=== PATIENT | male | born 1970 | race Caucasian/White ===

== ENCOUNTER 2016-07-09 20:25 | Inpatient (IN) | payer BC ==
--- NOTE | ~2016-07-09 | CN ---
Consultation Report [facility] [address] [place]. [address] NAME: MARCO ACEVEDO : 66 STATUS : ADM IN PAT#: [id number] AGE: 46 ADM/REG DATE : 07/09/16 MR#: [id number] REPORT SERV DATE: 07/12/16 DICTATED BY: LUKE HALL DATE: 07/11/16 REPORT STATUS : Draft TRANSCRIBED BY: MODPetey DATE: 07/11/16 INFECTIOUS DISEASE CONSULT DATE OF CONSULTATION: REASON FOR CONSULT: "Recurrent pneumonia with cavitation." HISTORY OF PRESENT ILLNESS: This is a 46 years old white male with history of splenectomy, COPD, bipolar disorder, sleep apnea, who was admitted on the 07/05/2016 for productive cough and maybe some hemoptysis and was found to have on CT of the chest areas of consolidation with central cavitation in the right upper lobe and right infrahilar area. Unfortunately, more that he is not a good historian and some of the history provided is not reliable. It appears that he followed with Dr. Borjas for long time but he could not tell me what type of lung disease he has. Typically, when I asked him about the diagnosis, he would answer yes. He states he has been on theophylline, and he uses oxygen as needed. He has been on "low dose of prednisone" for several months but he states this was prescribed by his tire design engineer, Dr. Burroughs, for a plantar fasciitis. He states he stopped this about a month ago. He thinks he has been sick since the first of the year when he went to [place] for the 's [place] and celebration. In April, he was hospitalized at [facility] with bilateral lower lobe consolidations and a sputum culture growing Pneumococcus resistant to levofloxacin. However, pneumococcal antigen was negative. Prior to that, he received from his PCP azithromycin, Levaquin, and steroids. At [facility], he was treated with Zosyn and discharged on the 30 of April, with Augmentin for seven more days. He states that he then developed thrush that went into his throat. He saw an ENT specialist and had an endoscopy, and he was told that he had thrush down into his esophagus. He was treated with nystatin and some oral antifungal. For about five days prior to this admission, he developed some "sinus drainage" which maybe was related to stopping the loratadine. He developed a cough with sputum production and one time had some blood. He also was feeling weak. He came to the hospital and was admitted to ICU for the above findings. He did not understand why little bit of blood in the sputum prompted an ICU admission and isolation procedures. Apparently at [facility] where he was initially admitted, he was belligerent, and he was asked to go outside to smoke. Upon admission, lab work showed a WBC of 17, creatinine 1.0, procalcitonin 0.12, lactic acid 0.8. The sputum culture grew normal sandra. Sputum for AFB smears were negative x3. Blood cultures 1 out of 2 on admission grew coagulase-negative Staph. He has been given vancomycin and Zosyn since admission. The CT scan of the chest showed Consultation Report [facility] [address] [facility] [place]. [address] NAME: MARCO ACEVEDO : 66 STATUS : ADM IN [facility]#: [id number] AGE: 46 ADM/REG DATE : 07/09/16 MR#: [id number] REPORT SERV DATE: 07/12/16 DICTATED BY: LUKE HALL DATE: 07/11/16 REPORT STATUS : Draft TRANSCRIBED BY: MODPetey DATE: 07/11/16 some right upper lobe area of consolidation with central necrosis, some right infrahilar centrally located air-fluid level with surrounding consolidation. There are some scattered opacities in bilateral lower lobes but that is much better than back in April. On 07/09/2016, he was transferred to [facility] so he could have a bronchoscopy by Dr. Sullivan. This happened yesterday. Dr. Sullivan describes normal looking trachea and bronchial mucosa. No endobronchial lesions. No secretions. Biopsy was done from right upper lobe cavity. Also bronchial brushings were collected and bronchoalveolar lavage from right upper lobe. The Gram stain from this three specimens showed no organisms. The initial pathology indicated inflammatory changes. AFB smears from this were negative. He states that he does not feel any better. He is still weak. However, he goes off the floor. He probably goes out to smoke. He walks around without any oxygen. He states that he is a very active person, and he needs to move, cannot stay in the in the room. He has wrappers from [employer] crackers and containers of Jell-O when he is stable although he is a diabetic. The nurse reports that he just got Arabic fries from the cafeteria. PAST MEDICAL HISTORY: As I mentioned, the chart also mentions narcolepsy. He has varicose veins, peripheral neuropathy. He had right and left tongue biopsy in 2015. The report indicates squamous hyperplasia on the right side but no atypia, no carcinoma. No carcinoma on the left either. However, when I asked the patient about this he said that he had "cancer." Obviously, he is not well informed about the biopsy. He states he has celiac disease although again I am not sure he follows gluten free diet. Reported history of cholecystectomy, appendectomy, tonsillectomy, nasal septum surgery, sinus surgery, inguinal hernia surgery, and bladder surgery as a child. SOCIAL HISTORY: He continues to smoke. He has a pet dog and cat. He lives with his and daughter. 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 None of his contacts have been sick. He reports no history of TB, no history of alcohol use. He is disabled. FAMILY HISTORY: According the chart, he is adopted. ALLERGIES: NONE. MEDICATIONS ON ADMISSION: According to the chart, magnesium, Geodon, Ambien at bedtime, Prilosec, Percocet, potassium, Lyrica, Seroquel, Zantac, theophylline, Spiriva, Zanaflex 4 times a day, Claritin, metformin, probiotic, Provigil 3 times a day, Dulera, Singulair, morphine with naltrexone as in Embeda, multivitamin with mineral, naloxegol, albuterol, Xanax as needed, Adderall four times a day, vitamin B12, Lasix, and Lamictal. PHYSICAL EXAMINATION: GENERAL: On exam, he is alert, in no obvious distress. I heard him cough only one time. Consultation Report [place] [address] [place]. [address] NAME: MARCO ACEVEDO : 66 STATUS : ADM IN [facility]#: [id number] AGE: 46 ADM/REG DATE : 07/09/16 MR#: [id number] REPORT SERV DATE: 07/12/16 DICTATED BY: LUKE HALL DATE: 07/11/16 REPORT STATUS : Draft TRANSCRIBED BY: CARY DATE: 07/11/16 Again, I had to wait for him to return from downstairs. HEENT: There is some mild oral mucosal erythema. LUNGS: Little coarse sounds. No wheezes, rhonchi, or rales. HEART: Regular rhythm. ABDOMEN: Protuberant with old midline surgical scars that are healed, nontender to palpation. EXTREMITIES: Legs with varicose veins. ASSESSMENT AND PLAN: 1. Two areas of consolidation with central cavitation in the right lung as I described in a patient with splenectomy, chronic smoking, diabetes, chronic obstructive pulmonary disease and sleep apnea. He has been on steroids until about a month ago. He appears to be noncompliant and according the chart, he has bipolar disorder. 2. A sputum culture on admission grew normal sandra. Then, he received vancomycin and Zosyn throughout the hospital stay. The bronchoscopy done yesterday was done while on antibiotics. Results are pending including pathology and cultures. Upon discussing with the patient, he thinks he has regurgitation episodes of stomach content. He describes this as having a bad taste in his mouth when he wakes up. He sleeps with the head up. He might have had recent Fay esophagitis per his history. Surprisingly, he has no fever. He is not on oxygen. He walks around. He does not appear to be in respiratory distress. Procalcitonin on admission was not elevated. I will be concerned about recurrent aspiration episodes. I discussed with the patient that he should not drink or eat anything for two to three hours before going to sleep. He is aware of need to stop smoking. I also explained the need for proper diabetic diet. Antibiotic marley, we will stop the vancomycin at this time. Continue the Zosyn pending cultures and pathology. 3. He had a splenectomy three years ago at [facility]. He thinks he received influenza and pneumococcal vaccines but he does not recall getting meningitis vaccine. I asked the pharmacist here to verify with [facility] [place] the vaccines given there, and he will request records from Dr. Kebede as well. 4. Polypharmacy. Surprisingly, he receives narcotics, benzodiazepines, a sleeping pill but also Provigil and amphetamines. He takes a muscle relaxant as well and many other medications. I wonder if there are no contraindications among his medications and if the list could be adjusted. Time spent about two hours. ALFREDO/CARY Luke Hall M.D. / [id number] Consultation Report [place] [address] [place] [address] NAME: MARCO ACEVEDO : 66 STATUS : ADM IN PAT#: [id number] AGE: 46 ADM/REG DATE : 07/09/16 MR#: [id number] REPORT SERV DATE: 07/12/16 DICTATED BY: LUKE HALL DATE: 07/11/16 REPORT STATUS : Draft TRANSCRIBED BY: MODL DATE: 07/11/16 CC: Dionna Winter M.D.
--- NOTE | ~2016-07-09 | EGD ---
EGD REPORT [facility] [address] [address] NAME: MARCO ACEVEDO : 66 STATUS : ADM IN PAT#: [id number] AGE: 46 ADM/REG DATE : 07/09/16 MR#: [id number] REPORT SERV DATE: 07/10/16 DICTATED BY: CHARLES KOO DATE: 07/10/16 REPORT STATUS : Draft TRANSCRIBED BY: [facility] DATE: 07/10/16 Pulmonology Patient Name: Marco Acevedo Procedure Date: 07/10/2016 1:56 PM Date of : 1970 Attending MD: DAVE KOO MD Procedure Date No Time: 07/10/2016 Procedure: EBUS/CHRISTAL BRONCHOSCOPY Indications: RUL cavitary and right infrahilar cavitary lung lesions, adenopathy Providers: DAVE KOO MD Referring MD: PATRICIO SMALLWOOD Medicines: Lidocaine 2% 20 mL Complications: No immediate complications Procedure: Pre-Anesthesia Assessment: - A History and Physical has been performed. Patient meds and allergies have been reviewed. The risks and benefits of the procedure and the sedation options and risks were discussed with the patient. All questions were answered and informed consent was obtained. Patient identification and proposed procedure were verified prior to the procedure by the physician and the nurse in the pre-procedure area in the procedure room. Mental Status Examination: alert and oriented. Airway Examination: normal oropharyngeal airway. Respiratory Examination: clear to auscultation. CV Examination: normal and RRR, no murmurs, no S3 or S4. ASA Grade Assessment: IV - A patient with severe systemic disease that is a constant threat to life. After reviewing the risks and benefits, the patient was deemed in satisfactory condition to undergo the procedure. The anesthesia plan was to use general anesthesia. Immediately prior to administration of medications, the patient was re-assessed for adequacy to receive sedatives. The heart rate, respiratory rate, oxygen saturations, blood pressure, adequacy of pulmonary ventilation, and response to care were monitored throughout the procedure. The physical status of the patient was re-assessed after the procedure. - ASA Grade Assessment: IV - A patient with severe systemic disease that is a constant threat to life. After obtaining informed consent, the Bronchoscope was introduced through the mouth, via the endotracheal tube (the patient was intubated for the procedure) and advanced to the tracheobronchial tree. The BF [id number] was introduced through the mouth, via the EGD REPORT [address] [address] NAME: MARCO ACEVEDO : [birth year] STATUS : ADM IN [facility]#: [id number] AGE: 46 ADM/REG DATE : 07/09/16 MR#: [id number] REPORT SERV DATE: 07/10/16 DICTATED BY: CHARLES KOO DATE: 07/10/16 REPORT STATUS : Draft TRANSCRIBED BY: [facility] DATE: 07/10/16 endotracheal tube (the patient was intubated for the procedure) and advanced to the tracheobronchial tree. The procedure was accomplished without difficulty. The patient tolerated the procedure well. Findings: The endotracheal tube is in good position. The visualized portion of the trachea is of normal caliber. The soy is sharp. The tracheobronchial tree was examined to at least the first subsegmental level. Bronchial mucosa and anatomy are normal; there are no endobronchial lesions, and no secretions. EBUS TBNA of lymph node level 11L x 4 passes for cytology EBUS TBNA of lymph node level 7 x 4 passes for cytology EBUS TBNA of lymph node level 4R x 4 passes for cytology EBUS TBNA of lymph node level 11R x 4 passes for cytology EBUS TBNA of right infrahilar cavitary lung lesion x 4 passes for cytology Using SuperDimension Edge catheter 180, peripheral probe EBUS 17s, and fluoroscopy, I performed the following biopsies: RUL cavitary lung lesion transbronchial needle aspirates x 6 passes for cytology and culture RUL cavitary lung lesion transbronchial brush biopsy x 2 pass for cytology and culture RUL cavitary lung lesion transbronchial forcep biopsies x 6 passes for histopathology Bronchoalveolar lavage was performed in the right upper lobe of the lung and sent for cell count, cytology, bacterial culture, viral smears \\T\\ culture, and fungal and AFB analysis. 180 mL of fluid were instilled. 40 mL were returned. The return was blood-tinged and cellular. Impression: Rapid On-Site Evaluation (YASIR): Preliminary cytology is suggestive of "inflammatory changes" (final results are pending). Recommendation: - Await test results. - Chest X-ray. - Follow up with Pulmonary consult team Attending Participation: I personally performed the entire procedure. DAVE KOO MD 07/10/2016 4:12 PM This report has been signed electronically. Number of Addenda: 0 Note Initiated On: 07/10/2016 1:56 PM [address] [address]
--- NOTE | ~2016-07-09 | EGD ---
EGD REPORT [facility] [address] [address] NAME: MARCO ACEVEDO : 66 STATUS : DIS IN PAT#: [id number] AGE: 46 ADM/REG DATE : 07/09/16 MR#: [id number] REPORT SERV DATE: 07/17/16 DICTATED BY: CHARLES KOO DATE: 07/17/16 REPORT STATUS : Draft [facility]ANSCRIBED [facility]: [facility] DATE: 07/17/16 THIS EXAM WAS SENT IN ERROR
--- NOTE | ~2016-07-09 | DS ---
Discharge Summary [facility] [address] [place]. [address] NAME: MARCO ACEVEDO : 66 STATUS : DIS IN PAT#: [id number] AGE: 46 ADM/REG DATE : 07/09/16 MR#: [id number] REPORT SERV DATE: 07/17/16 DICTATED BY: DARREN MAURO DATE: 07/16/16 REPORT STATUS : Draft TRANSCRIBED BY: MODL DATE: 07/16/16 ADMISSION DATE: 07/09/2016 DISCHARGE DATE: 07/16/2016 DISCHARGE DIAGNOSES: 1. Cavitary pneumonia, unidentified organism despite bronchial biopsies. 2. Mediastinal and hilar lymphadenopathy, benign tissue. 3. Chronic pain syndrome. 4. Type 2 diabetes mellitus that is uncontrolled. 5. Bipolar disorder with anxiety. 6. History of persistent smoking. 7. 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 8. Obstructive sleep apnea, noncompliant with CPAP. 9. Peripheral neuropathy. 10.Narcolepsy. 11.Chronic constipation. 12.History of aspiration pneumonia in the past. 13.History of partial glossectomy on the right hand side with a punch biopsy of the left side of the tongue. CONSULTANTS DURING THIS HOSPITALIZATION: Dr. Yost of Pulmonology, with Dr. Osborne of Pulmonology, with Dr. Luke Gurrola of Infectious Disease. INVASIVE PROCEDURES DONE DURING THIS HOSPITALIZATION: Bronchoscopy with navigation and EBUS and biopsies. Path report showing mostly bloody clot and bronchial mucosa, negative for tumor. Lymphoid samples, no evidence of malignancy in the lymph nodes. BRIEF HISTORY OF PRESENT ILLNESS: The patient is a 46-year-old male, presented with recurrent bilateral pneumonia and cavitation, so he was admitted. For detailed history and physical exam, please see my note dictated on 07/05/2016 at [facility]. HOSPITAL COURSE: After being admitted to the hospital, this patient was treated at [facility] and then transferred on 07/10/2016 to [facility]. Please see Dr. Turner Orourke's discharge summary for the hospital course at [facility]. When the patient arrived at [facility], he needed bronchoscopy immediately day following his transfer. The patient underwent a bronchoscopy three days later. We reviewed his pathology report. We continued IV antibiotics, especially IV Zosyn and gram-positive coverage was discontinued as there was no evidence of any gram-positive coverage. The blood cultures from BAL have remained all negative. However, this patient had been on antibiotics. Dr. Gurrola saw the patient in consultation, did not think that we needed to change antibiotic therapy. It was decided that he would need two weeks of total IV therapy, however, because of issues with arranging IV antibiotics in the home setting, it is decided that we would switch him to oral Augmentin XR 2000 mg twice daily for one week and then two 875 mg twice daily for two more weeks. This patient is amenable to that. During this hospitalization, the patient had been somewhat difficult to care for because he has left his room on a daily basis on multiple occasions. He continues to smoke when he goes outside. At times, he has been noncompliant Discharge Summary [address] [place]. [address] NAME: MARCO ACEVEDO : 66 STATUS : DIS IN PAT#: [id number] AGE: 46 ADM/REG DATE : 07/09/16 MR#: [id number] REPORT SERV DATE: 07/17/16 DICTATED BY: DARREN MAURO DATE: 07/16/16 REPORT STATUS : Draft TRANSCRIBED BY: CARY DATE: 07/16/16 with certain therapies as well. He has continually required narcotics. Today, he says that he has not taken any narcotics and I have confirmed that with the nurse. We will not give him any narcotic pain medications today because the patient insist that he wants to drive home when he is discharged. DISCHARGE DISPOSITION: Home. DISCHARGE ACTIVITY: As tolerated. DISCHARGE DIET: 1800-calorie [employer] diet. DISCHARGE MEDICATIONS: Augmentin XR 2000 mg twice daily for one week and then 875 mg p.o. twice daily for two more weeks, Adderall 30 mg four times daily, vitamin E50 once daily, Zantac 150 mg once at bedtime, Lasix 80 mg once daily, Lamictal 200 mg in the morning and 300 mg at bedtime, Claritin 10 mg once daily, Provigil 200 mg three times daily, Singulair 10 mg once daily, multivitamins one tablet daily, Movantik 25 mg once daily, Prilosec 20 mg once daily, potassium 20 mEq twice daily, Lyrica 200 mg three times daily, Seroquel 300 mg 1.5 tablet once at bedtime, Eligio-Dur ER 300 mg twice daily, Spiriva one capsule inhalation twice daily, Zanaflex 4 mg four times daily, Geodon 80 mg once at bedtime, Ambien 10 mg once at bedtime, Ventolin HFA p.r.n., Proventil nebulizer four times daily, Dulera 200/5 two puffs twice daily, Percocet 10/325 one tablet four times daily p.r.n. for breakthrough pain, Xanax 1 mg four times daily p.r.n., Embeda 50/2 mg capsule twice daily, Glucophage 500 mg twice daily, probiotics one tablet daily. DISCHARGE FOLLOWUP: With Dr. Dewayne Kebede in two weeks, with Dr. Luke Gurrola in one month, with Dr. Jesus Borjas in four weeks. This patient will also be scheduled to have an outpatient CT scan done in one month, which will be followed up in the outpatient setting. More than 40 minutes spent planning this patient's discharge, reconciling medications, writing prescriptions, discussing hospital care on multiple times during this discharge process with the patient and also communicating with Dr. Gurrola as well as documenting this discharge. SV/MODL Darren Mauro M.D. / [id number] CC: Dionna Winter M.D. Suresh Enjeti, M.D. Paul Cornea, M.D.
[~2016-07-09 20:25] MED LIST: ABREVA TOP; ADDERALL30 MG PO; ALBUTEROL5 INH; AMB10 PO; AMB5 PO; ASAB PO; AUG875 PO; AVINZA60 PO; CENTRUM PO; CENTRUM TAB1 TAB PO; CLARIT10 PO; COMBIVENT; COMBIVENT PO; CYANO1000T PO; DSS PO; DULERA 200 MCG/13 GM INH; EMBEDA1 CA2 PO; FLONASE NAS; FLORASTOR250 MG PO; FOLIC PO; GEODON80 PO; GLUCPH PO; HABIT21 TOP; IBU800 PO; KADIAN60 MG PO; KLOR-CON M2020 MEQ PO; KLOR-CON20 MEQ PO; L40 PO; L80 PO; LAMICTAL10 PO; LAMICTAL150 MG PO; LAMICTAL200 MG PO; LIOR10 PO; LYRICA200 MG PO; MAGNESIUM PO; MIRALAX POWDER1 PKT PO; MIRALAXPKT PO; MOVANTIK25 MG PO; MSCONT60 PO; MUCINEX1200 MG PO; MULTIVITAMI1 PO; MVI PO; NEUR600 PO; NEUR800 PO; NOVOLOG SC; NYS500UDL PO; P5 PO; PERCOCET 10/3251 TAB PO; PERCOCET1 TA4 PO; PREV30 PO; PRILO PO; PROBIOTIC PO; PROVIGIL1 PO; PROVIGIL2 PO; RELISTOR12 MG/0.6 SC; SEROQUEL300 MG PO; SEROQUEL50 MG PO; SINGULAIR1 PO; SOMATAB PO; SPIRIVA INH; SYMBICORT; T300 PO; THEO24300 PO; TRAZ100 PO; VENTOLIN HFA INH; VENTOLIN HFA PO; VIBRA-TAB 100100 MG PO; VICTOZA18 MG/3 ML SC; VITAMIN B-121000 MC1 PO; VITAMIN B-122500 MCG PO; VOLT75 PO; WELLSR150 PO; WELLXL150 PO; XANAX1 MG PO; XYREM PO; ZANAFLEX 4 MG TA4 MG PO; ZANTAC 150 PO; ZANTAC150 MG PO; [UNRECOGNIZED DRUG - CODE]; [UNRECOGNIZED DRUG - OTHER] PO/LIQ
[2016-07-10 05:32] LABS: INTERNATIONAL NORMAL RATI 1.2 UNITS (-); PROTIME (NOT ORD) 15.2 SEC (12.0-14.5)
[2016-07-10 05:35] LABS: BASOPHILS 0.7 %; EOSINOPHILS 4.6 %; EOSINOPHILS ABSOLUTE 0.62 10/3/uL (0.0-0.53); HEMATOCRIT 35.5 % (40.0-51.0); HEMOGLOBIN 11.2 g/dL (13.6-17.8); IMMATURE GRANULOCYTES 0.7 %; IMMATURE GRANULOCYTES ABSOLUTE 0.09 10/3/uL (0.0-0.11); LYMPHOCYTES 27.2 %; LYMPHOCYTES ABSOLUTE 3.65 10/3/uL (0.67-4.30); MEAN CORPUS HGB CONC 31.5 g/dL (32.0-36.0); MEAN CORPUSCULAR VOLUME 82.6 fL (80-100); MEAN PLATELET VOLUME 8.4 fL (9.2-13.0); MONOCYTES 11.2 %; MONOCYTES ABSOLUTE 1.51 10/3/uL (0.21-1.20); NEUTROPHILS 55.6 %; NEUTROPHILS ABSOLUTE 7.46 10/3/uL (2.02-8.40); RBC DISTRIBUTION WIDTH 17.9 % (12.0-16.0); WHITE BLOOD CELLS 13.4 10/3/uL (4.5-10.5)
[2016-07-10 05:36] LABS: MANUAL DIFF NO %; PLATELET COUNT 803 10/3/uL (150-400)
[2016-07-10 05:39] LABS: BUN (BLOOD UREA NITROGEN) 16 MG/DL (6-23); CALCIUM, SERUM 9.6 MG/DL (8.5-10.4); CHLORIDE, SERUM 103 MMOL/L (96-112); CO2 (CARBON DIOXIDE) 27 MMOL/L (24-34); CREATININE 1.04 MG/DL (0.70-1.30); GFR AFRICAN AMERICAN 98 ML/MIN (>=60); GFR NON AFRICAN AMERICAN 85 ML/MIN (>=60); POTASSIUM, SERUM 3.6 MMOL/L (3.5-5.3); SODIUM, SERUM 140 MMOL/L (135-148)
[2016-07-10 05:40] LABS: GLUCOSE, SERUM 205 MG/DL (60-99)
[2016-07-10 06:27] LABS: ANISOCYTOSIS 1+ (5-10/OIF) (0-5/OIF)
[2016-07-10 19:43] LABS: BD FL LYMPH (NOT ORD) 1 %; BF BASO (NOT OF) 0 %; BF LARGE MONONUCLEAR 22 %; BODY FLUID EOS (NOT ORD) 0 %; BODY FLUID SEG (NOT ORD) 77 %
[2016-07-10 19:44] LABS: BD FL SOURCE (NOT ORD) BAL; BF TOTAL CELL CT (NOT ORD 1052 /MM3; BODY FLUID RBC (NOT ORD) 11000 /MM3
[2016-07-11 08:11] LABS: BASOPHILS 0.5 %; BASOPHILS ABSOLUTE 0.08 10/3/uL (0.0-0.16); EOSINOPHILS 1.8 %; EOSINOPHILS ABSOLUTE 0.28 10/3/uL (0.0-0.53); HEMATOCRIT 32.7 % (40.0-51.0); HEMOGLOBIN 10.3 g/dL (13.6-17.8); IMMATURE GRANULOCYTES 0.4 %; IMMATURE GRANULOCYTES ABSOLUTE 0.06 10/3/uL (0.0-0.11); LYMPHOCYTES 23.7 %; LYMPHOCYTES ABSOLUTE 3.59 10/3/uL (0.67-4.30); MANUAL DIFF NO %; MEAN CORPUS HGB CONC 31.5 g/dL (32.0-36.0); MEAN CORPUSCULAR HEMOGLOB 26.1 pg (26.0-34.0); MEAN CORPUSCULAR VOLUME 82.8 fL (80-100); MEAN PLATELET VOLUME 8.3 fL (9.2-13.0); MONOCYTES 10.9 %; MONOCYTES ABSOLUTE 1.65 10/3/uL (0.21-1.20); NEUTROPHILS 62.7 %; NEUTROPHILS ABSOLUTE 9.51 10/3/uL (2.02-8.40); PLATELET COUNT 686 10/3/uL (150-400); RBC DISTRIBUTION WIDTH 18.1 % (12.0-16.0); RED CELL COUNT 3.95 10/6/uL (4.7-6.1); WHITE BLOOD CELLS 15.2 10/3/uL (4.5-10.5)
[2016-07-11 08:32] LABS: ALBUMIN 2.4 G/DL (3.5-5.0); BUN (BLOOD UREA NITROGEN) 15 MG/DL (6-23); CHLORIDE, SERUM 104 MMOL/L (96-112); CO2 (CARBON DIOXIDE) 25 MMOL/L (24-34); CREATININE 1.05 MG/DL (0.70-1.30); GFR AFRICAN AMERICAN 97 ML/MIN (>=60); GFR NON AFRICAN AMERICAN 84 ML/MIN (>=60); PHOSPHORUS, SERUM 3.2 MG/DL (2.5-4.5); POTASSIUM, SERUM 3.7 MMOL/L (3.5-5.3); SODIUM, SERUM 138 MMOL/L (135-148)
[2016-07-11 08:33] LABS: CALCIUM, SERUM 8.5 MG/DL (8.5-10.4); GLUCOSE, SERUM 334 MG/DL (60-99)
[2016-07-12 06:34] LABS: BASOPHILS 0.8 %; BASOPHILS ABSOLUTE 0.11 10/3/uL (0.0-0.16); EOSINOPHILS 5.1 %; EOSINOPHILS ABSOLUTE 0.73 10/3/uL (0.0-0.53); HEMOGLOBIN 10.9 g/dL (13.6-17.8); IMMATURE GRANULOCYTES 0.5 %; IMMATURE GRANULOCYTES ABSOLUTE 0.07 10/3/uL (0.0-0.11); LYMPHOCYTES ABSOLUTE 3.58 10/3/uL (0.67-4.30); MEAN CORPUS HGB CONC 32.1 g/dL (32.0-36.0); MEAN CORPUSCULAR HEMOGLOB 26.3 pg (26.0-34.0); MEAN CORPUSCULAR VOLUME 81.9 fL (80-100); MEAN PLATELET VOLUME 8.2 fL (9.2-13.0); MONOCYTES 14.4 %; MONOCYTES ABSOLUTE 2.06 10/3/uL (0.21-1.20); NEUTROPHILS 54.2 %; NEUTROPHILS ABSOLUTE 7.75 10/3/uL (2.02-8.40); PLATELET COUNT 691 10/3/uL (150-400); RED CELL COUNT 4.15 10/6/uL (4.7-6.1); WHITE BLOOD CELLS 14.3 10/3/uL (4.5-10.5)
[2016-07-12 06:35] LABS: MANUAL DIFF NO %
[2016-07-12 06:45] LABS: ALBUMIN 2.5 G/DL (3.5-5.0); CALCIUM, SERUM 9.3 MG/DL (8.5-10.4); CHLORIDE, SERUM 106 MMOL/L (96-112); CO2 (CARBON DIOXIDE) 25 MMOL/L (24-34); CREATININE 0.92 MG/DL (0.70-1.30); GFR AFRICAN AMERICAN 114 ML/MIN (>=60); GFR NON AFRICAN AMERICAN 98 ML/MIN (>=60); PHOSPHORUS, SERUM 2.9 MG/DL (2.5-4.5); POTASSIUM, SERUM 4.2 MMOL/L (3.5-5.3); SODIUM, SERUM 141 MMOL/L (135-148)
[2016-07-12 06:46] LABS: BUN (BLOOD UREA NITROGEN) 9 MG/DL (6-23); GLUCOSE, SERUM 264 MG/DL (60-99)
[2016-07-12 08:13] LABS: PROCALCITONIN <0.05 ng/mL (<0.5)
[2016-07-14 07:23] LABS: BASOPHILS 0.8 %; EOSINOPHILS 6.1 %; HEMOGLOBIN 10.7 g/dL (13.6-17.8); IMMATURE GRANULOCYTES 0.4 %; IMMATURE GRANULOCYTES ABSOLUTE 0.05 10/3/uL (0.0-0.11); LYMPHOCYTES 31.4 %; LYMPHOCYTES ABSOLUTE 4.13 10/3/uL (0.67-4.30); MEAN CORPUS HGB CONC 32.4 g/dL (32.0-36.0); MEAN CORPUSCULAR HEMOGLOB 26.4 pg (26.0-34.0); MEAN CORPUSCULAR VOLUME 81.3 fL (80-100); MEAN PLATELET VOLUME 8.5 fL (9.2-13.0); MONOCYTES ABSOLUTE 1.31 10/3/uL (0.21-1.20); NEUTROPHILS 51.3 %; NEUTROPHILS ABSOLUTE 6.77 10/3/uL (2.02-8.40); PLATELET COUNT 681 10/3/uL (150-400); RED CELL COUNT 4.06 10/6/uL (4.7-6.1); WHITE BLOOD CELLS 13.2 10/3/uL (4.5-10.5)
[2016-07-14 07:24] LABS: MANUAL DIFF NO %
[2016-07-14 07:35] LABS: ALBUMIN 2.7 G/DL (3.5-5.0); BUN (BLOOD UREA NITROGEN) 19 MG/DL (6-23); CALCIUM, SERUM 9.2 MG/DL (8.5-10.4); CHLORIDE, SERUM 100 MMOL/L (96-112); CO2 (CARBON DIOXIDE) 27 MMOL/L (24-34); CREATININE 1.12 MG/DL (0.70-1.30); GFR AFRICAN AMERICAN 90 ML/MIN (>=60); GFR NON AFRICAN AMERICAN 77 ML/MIN (>=60); GLUCOSE, SERUM 297 MG/DL (60-99); PHOSPHORUS, SERUM 3.6 MG/DL (2.5-4.5); POTASSIUM, SERUM 3.9 MMOL/L (3.5-5.3); SODIUM, SERUM 134 MMOL/L (135-148)
[2016-07-15 05:29] LABS: BASOPHILS 1.1 %; BASOPHILS ABSOLUTE 0.14 10/3/uL (0.0-0.16); EOSINOPHILS 4.2 %; EOSINOPHILS ABSOLUTE 0.52 10/3/uL (0.0-0.53); HEMATOCRIT 33.6 % (40.0-51.0); HEMOGLOBIN 10.8 g/dL (13.6-17.8); IMMATURE GRANULOCYTES 0.3 %; IMMATURE GRANULOCYTES ABSOLUTE 0.04 10/3/uL (0.0-0.11); LYMPHOCYTES 28.2 %; LYMPHOCYTES ABSOLUTE 3.52 10/3/uL (0.67-4.30); MANUAL DIFF NO %; MEAN CORPUS HGB CONC 32.1 g/dL (32.0-36.0); MEAN PLATELET VOLUME 8.3 fL (9.2-13.0); MONOCYTES 10.3 %; MONOCYTES ABSOLUTE 1.29 10/3/uL (0.21-1.20); NEUTROPHILS 55.9 %; NEUTROPHILS ABSOLUTE 6.96 10/3/uL (2.02-8.40); PLATELET COUNT 668 10/3/uL (150-400); RBC DISTRIBUTION WIDTH 17.7 % (12.0-16.0); RED CELL COUNT 4.15 10/6/uL (4.7-6.1); WHITE BLOOD CELLS 12.5 10/3/uL (4.5-10.5)
[2016-07-15 05:46] LABS: ALBUMIN 2.8 G/DL (3.5-5.0); BUN (BLOOD UREA NITROGEN) 19 MG/DL (6-23); CALCIUM, SERUM 9.2 MG/DL (8.5-10.4); CHLORIDE, SERUM 103 MMOL/L (96-112); CO2 (CARBON DIOXIDE) 27 MMOL/L (24-34); CREATININE 1.05 MG/DL (0.70-1.30); GFR AFRICAN AMERICAN 97 ML/MIN (>=60); GFR NON AFRICAN AMERICAN 84 ML/MIN (>=60); PHOSPHORUS, SERUM 4.2 MG/DL (2.5-4.5); POTASSIUM, SERUM 3.8 MMOL/L (3.5-5.3); SODIUM, SERUM 138 MMOL/L (135-148)
[2016-07-15 05:48] LABS: GLUCOSE, SERUM 168 MG/DL (60-99)
[2016-07-16 05:55] LABS: BASOPHILS 0.9 %; BASOPHILS ABSOLUTE 0.12 10/3/uL (0.0-0.16); EOSINOPHILS 3.9 %; HEMATOCRIT 33.8 % (40.0-51.0); HEMOGLOBIN 10.8 g/dL (13.6-17.8); IMMATURE GRANULOCYTES 0.3 %; IMMATURE GRANULOCYTES ABSOLUTE 0.04 10/3/uL (0.0-0.11); LYMPHOCYTES 29.2 %; LYMPHOCYTES ABSOLUTE 3.77 10/3/uL (0.67-4.30); MEAN CORPUSCULAR HEMOGLOB 26.2 pg (26.0-34.0); MEAN CORPUSCULAR VOLUME 81.8 fL (80-100); MEAN PLATELET VOLUME 8.5 fL (9.2-13.0); MONOCYTES 11.8 %; MONOCYTES ABSOLUTE 1.52 10/3/uL (0.21-1.20); NEUTROPHILS 53.9 %; NEUTROPHILS ABSOLUTE 6.95 10/3/uL (2.02-8.40); PLATELET COUNT 645 10/3/uL (150-400); RBC DISTRIBUTION WIDTH 17.9 % (12.0-16.0); RED CELL COUNT 4.13 10/6/uL (4.7-6.1); WHITE BLOOD CELLS 12.9 10/3/uL (4.5-10.5)
[2016-07-16 06:01] LABS: MANUAL DIFF NO %
[2016-07-16 06:08] LABS: ALBUMIN 2.9 G/DL (3.5-5.0); BUN (BLOOD UREA NITROGEN) 19 MG/DL (6-23); CALCIUM, SERUM 8.8 MG/DL (8.5-10.4); CHLORIDE, SERUM 101 MMOL/L (96-112); CO2 (CARBON DIOXIDE) 26 MMOL/L (24-34); CREATININE 1.01 MG/DL (0.70-1.30); GFR AFRICAN AMERICAN 101 ML/MIN (>=60); GFR NON AFRICAN AMERICAN 88 ML/MIN (>=60); POTASSIUM, SERUM 4.1 MMOL/L (3.5-5.3); SODIUM, SERUM 135 MMOL/L (135-148)
[2016-07-16 06:09] LABS: GLUCOSE, SERUM 263 MG/DL (60-99); PHOSPHORUS, SERUM 3.2 MG/DL (2.5-4.5)
[2016-07-16] MEDS ORDERED: FLORASTOR250 MG PO (13:41)
[2016-07-16] MEDS ORDERED: AUGMENTIN XR PO (13:43)
[2016-07-16] MEDS ORDERED: AUG875 PO (13:43)
== END 2016-07-16 17:57 | disposition home or self-care (01) | DRG 166 ==
LOC: 4SO 20:25
PROVIDERS: Internal Medicine
DX: J44.0 Chronic obstructive pulmonary disease with (acute) lower respiratory infection (principal); J18.9 Pneumonia, unspecified organism; J96.01 Acute respiratory failure with hypoxia; L03.311 Cellulitis of abdominal wall; L03.317 Cellulitis of buttock; E11.42 Type 2 diabetes mellitus with diabetic polyneuropathy; Z90.81 Acquired absence of spleen; F17.200 Nicotine dependence, unspecified, uncomplicated; Z79.84 Long term (current) use of oral hypoglycemic drugs; Z79.891 Long term (current) use of opiate analgesic; G47.33 Obstructive sleep apnea (adult) (pediatric); F31.9 Bipolar disorder, unspecified; Z91.11 Patient's noncompliance with dietary regimen; G47.411 Narcolepsy with cataplexy; J38.3 Other diseases of vocal cords; G89.4 Chronic pain syndrome; F41.9 Anxiety disorder, unspecified; Z91.19 Patient's noncompliance with other medical treatment and regimen; Z98.890 Other specified postprocedural states; R59.0 Localized enlarged lymph nodes; J98.4 Other disorders of lung
CPT/HCPCS: 71010; 71020; 71250; 71275; 80048; 80053; 80069; 80076; 80202; 82962; 83605; 83735; 84132; 84145; 85025; 85379; 85610; 85730; 87015; 87040; 87070; 87102; 87116; 87150; 87205; 87641; 88112; 88172; 88173; 88305; 88333; 89051; 92610-GN; 93005; 94640; 96365; 96375; 96376; 99285; A9270-GY; C1725; J0330; J0692; J1170; J1720; J1956; J2250; J2405; J2543; J2710; J3010; J3370; Q9967